=== PATIENT | male | born 1980 | race Caucasian/White ===

== ENCOUNTER 2017-10-20 13:34 | Emergency (ER) | payer OTHER ==
[~2017-10-20] VITALS: Ht 175.3 cm; Wt 83.9 kg
[2017-10-20 13:35] VITALS: BP 165/114
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
[2017-10-20] MEDS ORDERED: ACET-704 PO (14:03)
== END 2017-10-20 14:10 | disposition home or self-care (01) ==
LOC: ER 13:34
DX: T21.22XA Burn of second degree of abdominal wall, initial encounter (principal); T23.122A Burn of first degree of single left finger (nail) except thumb, initial encounter; T31.0 Burns involving less than 10% of body surface; X12.XXXA Contact with other hot fluids, initial encounter; Y93.89 Activity, other specified; Y92.89 Other specified places as the place of occurrence of the external cause; Y99.0 Civilian activity done for income or pay
CPT/HCPCS: 99283